=== PATIENT | female | born 1995 | race African-American/Black ===

== ENCOUNTER 2020-01-05 17:19 | Observation (INO) | payer OTHER, SELFPAY ==
[2020-01-05] VITALS (9 sets, daily range): BP systolic 107–125; BP diastolic 56–91; PULSE 66–99; TEMP 37; BMI 43.9
--- NOTE | 2020-01-05 17:19 | OBADM ---
This patient, Josephine Bates, admitted to the OB room OB Post 116 for observation. Patient/family oriented to hospital policies and general routines including ID bracelet, bed and alarms, visiting hours, pain management, procedures, bathroom and other care routines, personal items, smoking policy, room service/diet, and visiting hours. Patient/Family are encouraged to report perceived risks to care and to ask questions if they do not understand what they are told or what they should do.
[2020-01-05 18:41] LABS: Add Urine Microscopic? NO; Appearance Urine Clear (Clear); Bilirubin Urine Negative (Negative); Blood Urine Negative (Negative); Color Urine Yellow (Yellow); Glucose Urine UA Negative (Negative); Ketones Urine Negative (Negative); Leukocyte Esterase Ur Negative LEU/UL (NEGATIVE); Nitrate Urine Negative (Negative); Protein Urine Negative (Negative); Specific Grav Ur 1.013 (1.001-1.035); Urobilinogen Urine Negative mg/dL (<2.0)
--- NOTE | 2020-02-05 07:18 | P.PNOB_ITS ---
OB - Triage/Final Diagnosis Evaluation Laboratory results: Laboratory Tests 01/05/20 18:31 Urine Color Yellow Urine Appearance Clear Urine pH 7.0 Ur Specific [place] 1.013 Urine Protein Negative Urine Glucose (UA) Negative Urine Ketones Negative Ur Blood (Man) Negative Urine Nitrate Negative Urine Bilirubin Negative Urine Urobilinogen Negative Ur Leukocyte Esterase Negative Final Diagnosis (1) Pain in symphysis pubis during : Code(s): O99.89 - Other specified diseases and conditions complicating , childbirth and the puerperium; M79.18 - Myalgia, other site Status: Acute
== END 2020-01-05 20:07 | disposition home or self-care (01) ==
PROVIDERS: Admitting Provider Obstetrics & Gynecology; Visit Provider Obstetrics & Gynecology
DX: O26.899 Other specified pregnancy related conditions, unspecified trimester (principal); R10.2 Pelvic and perineal pain; Z3A.00 Weeks of gestation of pregnancy not specified
CPT/HCPCS: 81003; 87086; G0378; G0379

== ENCOUNTER 2020-01-27 20:41 | Observation (INO) | payer OTHER, SELFPAY ==
[2020-01-27 20:52] VITALS: BP 120/77; PULSE 95; BMI 46.9
--- NOTE | 2020-01-27 20:53 | OBADM ---
This patient, Josephine Bates, admitted to the OB room Labor/Delivery/Recovery 105 for observation. Patient/family oriented to hospital policies and general routines including ID bracelet, bed and alarms, visiting hours, pain management, procedures, bathroom and other care routines, personal items, smoking policy, room service/diet, and visiting hours. Patient/Family are encouraged to report perceived risks to care and to ask questions if they do not understand what they are told or what they should do.
[2020-01-27 21:00] VITALS: TEMP 36.9
[2020-01-27 21:01] VITALS: BP 120/77; PULSE 90
[2020-01-27 21:18] LABS: Add Urine Microscopic? YES; Appearance Urine Cloudy (Clear); Bacteria Urine 2+ /hpf; Bilirubin Urine Negative (Negative); Blood Urine Negative (Negative); Color Urine Yellow (Yellow); Glucose Urine UA Negative (Negative); Ketones Urine Negative (Negative); Leukocyte Esterase Ur Trace LEU/UL (Negative); Mucus Urine Few /lpf; Nitrate Urine Negative (Negative); Protein Urine 1+ mg/dL (Negative); Specific Grav Ur 1.026 (1.001-1.035); Squamous Epithelial Cell Urine Many /hpf (Few); WBC Urine 0-3 /hpf
--- NOTE | 2020-01-27 21:40 | PC.NURSE ---
Updated Dr. Armstrong on maternal and assessments. Notified of UA results. Discharge orders received.
--- NOTE | 2020-01-27 21:58 | PC.NURSE ---
Discharge instructions reviewed with patient. Patient educated on s/s of labor. Patient states understanding of discharge instructions and denies questions. Patient agrees to discharge. Patient left ambulating at 2158.
--- NOTE | 2020-01-28 08:10 | P.PNOB_ITS ---
OB - Triage/Final Diagnosis Evaluation Laboratory results: Laboratory Tests 01/27/20 21:04 Urine Color Yellow Urine Appearance Cloudy H Urine pH 6.0 Ur Specific [place] 1.026 Urine Protein 1+ H Urine Glucose (UA) Negative Urine Ketones Negative Ur Blood (Man) Negative Urine Nitrate Negative Urine Bilirubin Negative Urine Urobilinogen 2.0 H Leukocyte Esterase Rfl Trace H Urine RBC 3-5 H Urine WBC 0-3 Ur Squamous Epith Cells Many H Urine Bacteria 2+ H Urine Mucus Few H Vital signs: Vital Signs - 24 hr 01/27/20 20:52 01/27/20 21:00 01/27/20 21:01 Temperature 36.9 C Pulse Rate 95 90 Blood Pressure 120/77 120/77 Final Diagnosis (1) Back pain affecting : Code(s): O99.89 - Other specified diseases and conditions complicating , childbirth and the puerperium; M54.9 - Dorsalgia, unspecified Status: Acute
== END 2020-01-27 21:58 | disposition home or self-care (01) ==
PROVIDERS: Admitting Provider Obstetrics & Gynecology; PCP Emergency Medicine; Visit Provider Obstetrics & Gynecology
DX: O99.89 Other specified diseases and conditions complicating pregnancy, childbirth and the puerperium (principal); M54.9 Dorsalgia, unspecified; Z3A.00 Weeks of gestation of pregnancy not specified
CPT/HCPCS: 81001; G0378; G0379

== ENCOUNTER 2020-02-03 00:15 | Observation (INO) | payer OTHER, SELFPAY ==
[2020-02-03 01:00] VITALS: BMI 45.6
[2020-02-03 01:30] VITALS: BP 111/71; PULSE 97
[2020-02-03] MEDS: METOCLOPRAMIDE HCL INJ 10 MG/2 ML VIAL IV PUSH (01:57)
[2020-02-03] MEDS: LACTATED RINGERS 1,000 ML 125 ML IV CONT ×2 (01:57→02:52)
[2020-02-03] MEDS: ONDANSETRON INJ 4 MG/2 ML VIAL IV PUSH (01:57)
[2020-02-03 02:02] LABS: Alanine Aminotransferase 15 U/L (4-35); Albumin Level 3.4 g/dL (3.5-5.1); Alkaline Phosphatase 99 U/L (38-126); Aspartate Amino Transferase 20 U/L (14-36); Bilirubin,Total 0.5 mg/dL (0.2-1.3); Blood Urea Nitrogen 5 mg/dL (7-17); Calcium 8.5 mg/dL (8.4-10.2); Carbon Dioxide 19 mmol/L (22-30); Chloride 106 mmol/L (98-107); Estimated CRCL calculation 247 ml/min; Estimated Glomerular Filt Rate > 60; Glucose 86 mg/dL (65-105); Potassium 3.8 mmol/L (3.4-5.0); Sodium 132 mmol/L (137-145)
--- NOTE | 2020-02-17 14:39 | P.DS_ITS ---
DS: Admitting Diagnosis Admitting Diagnosis Admitting Diagnosis: pevic pain DS: Discharge Diagnosis Discharge Diagnosis (1) Pain in symphysis pubis during : Code(s): O99.89 - Other specified diseases and conditions complicating , childbirth and the puerperium; M79.18 - Myalgia, other site Status: Acute (2) Back pain affecting : Code(s): O99.89 - Other specified diseases and conditions complicating , childbirth and the puerperium; M54.9 - Dorsalgia, unspecified Status: Acute OB - DS: Summary OB Procedures : None OB Procedures Intrapartum: Other OB Procedures: : None Time Spent with Patient Time attestation: Total time spent providing and/or coordinating discharge services: Exam Const: General: comfortable Limitations: no limitations Chest: Breast/axilla inspection: normal inspection of the breasts Resp: Effort & Inspection: normal respiratory effort Cardio: Rate: regular rate GI: GI Palp: Yes Soft to palpation : General: Yes bladder normal to inspection Psych: Appearance: grossly normal Mental Status: mental status grossly normal Discharge Plan Discharge Attending physician on discharge: Oren Cagle Discharging Clinician: Oren Cagle Patient Disposition: Home, Self-Care Activity: as tolerated Diet: as tolerated Wound Care Instructions: follow printed instructions Discharge Instructions: OB ANTEPARTUM DISCHARGE INSTRUCTIONS This information is given to help you properly care for yourself at home after your discharge from the hospital. Follow these instructions until your doctor tells you otherwise. DIET: Eat Three Well Balanced Meals per Day Small Frequent Feedings Drink at Least Eight 8-Ounce Glasses of Caffeine-Free Beverages Daily Additional Diet Instructions: ACTIVITY: As Tolerated Additional Activity Instructions: RETURN TO LABOR AND DELIVERY IF YOU HAVE: Any Change In Baby's Normal Movement Pattern Any Leakage of Fluid Contractions 3-5 Minutes Apart with Increasing Intensity Vaginal Bleeding Additional Reasons to Return to Labor and Delivery: Contractions may feel like abdominal pain, tightening, cramping, pressure, back ache, or thigh ache. FOLLOW-UP CARE: Keep Next Scheduled Appointment To see in/on Valuables released to patient or family? N/A Medications from home returned to patient? N/A I Acknowledge Receipt of and Understand the Above Instructions IF YOU HAVE ANY QUESTIONS REGARDING THESE INSTRUCTIONS, PLEASE CALL [phone]. IF PROBLEMS ARISE, CALL YOUR PROVIDER. IF EMERGENCY CARE IS NEEDED, [facility] EMERGENCY ROOM IS AVAILABLE 24 HOURS A DAY. Stand Alone Forms: General Discharge Information Follow-up/Referrals: Oren Cagle MD [Physician] - Discharge Medications: Continued PNV cmb#95-ferrous fumarate-FA [] 28 mg iron- 800 mcg Tablet 1 tablet PO DAILY RF: 0 Date of admission: 02/03/20 00:15 Primary Care Provider: Jules Garcia Admitting Provider: Oren Cagle Interventions: Discharge Disposition Last Done: 02/03/20 04:07 Discharge Date/Time: 02/03/20 04:10 Attending physician on admission: Oren Cagle Condition: Stable
== END 2020-02-03 04:10 | disposition home or self-care (01) ==
PROVIDERS: Admitting Provider Obstetrics & Gynecology; PCP Emergency Medicine; Visit Provider Obstetrics & Gynecology
DX: O99.89 Other specified diseases and conditions complicating pregnancy, childbirth and the puerperium (principal); M79.18 Myalgia, other site; M54.9 Dorsalgia, unspecified; Z3A.00 Weeks of gestation of pregnancy not specified
CPT/HCPCS: 36415; 80053; 96361; 96374; 96375; G0378; G0379; J2405; J2765; J7120

== ENCOUNTER 2020-02-23 00:42 | Inpatient (IN) | payer OTHER, SELFPAY ==
[2020-02-23] VITALS (83 sets, daily range): BP systolic 82–130; BP diastolic 45–94; PULSE 17–125; RESP 15–20; TEMP 36.1–37.2; O2SAT 93–100; BMI 45.6
--- NOTE | 2020-02-23 00:42 | LDADM ---
This patient, Josephine Bates, was admitted to Labor/Delivery/Recovery 109 on 02/23/20 at 00:42. Plans for labor, pain management and were discussed with patient. Patient/family oriented to hospital policies and general routines including ID bracelet, bed and alarms, visiting hours, pain management, procedures, bathroom and other care routines, personal items, smoking policy, room service/diet and guest tray routines, infant security routines, and visiting hours. Patient/Family are encouraged to report perceived risks to care and to ask questions if they do not understand what they are told or what they should do. See OBIX for further documentation.
[2020-02-23 01:17] LABS: Basophils Percent Auto 0.3 % (0.2-1.2); Eosinophils Absolute Auto 0.1 K/mm3 (0-0.3); Eosinophils Percent Auto 0.7 % (0-4.4); Hematocrit 32.2 % (37.0-47.0); Hemoglobin 10.6 g/dL (12.0-15.0); Immature Granulocyte Absolute 0.03 K/mm3 (0.00-0.031); Immature Granulocyte Percent A 0.3 % (0-0.5); Lymphocytes Absolute Auto 2.94 K/mm3 (0.9-3.2); Lymphocytes Percent Auto 27.6 % (18.3-44.2); Mean Corpuscular HGB Conc 32.9 g/dl (32-36); Mean Corpuscular Hemoglobin 26.9 pg (26-34); Mean Corpuscular Volume 81.7 fl (80-100); Mean Platelet Volume 11.4 fl (7.4-10.4); Monocytes Percent Auto 9.1 % (2.6-8.5); Neutrophils Absolute Auto 6.6 K/mm3 (1.3-6.7); Platelet Count Result 299 k/mm3 (150-375); Red Blood Count 3.94 M/mm3 (4.2-5.4); Red Cell Distribution Width 15.5 % (11.5-14.5); White Blood Count 10.7 K/mm3 (4.5-10.0)
[2020-02-23] MEDS: DINOPROSTONE 10 MG VAG INSERT VAGINAL (01:31)
[2020-02-23 02:10] LABS: HIV 1/2 Ab P24 Ag Result Negative (Negative)
[2020-02-23 02:10] LABS: Amphetamine Screen Urine Negative (Negative); Barbiturate Screen Urine Negative (Negative); Benzodiazepines Screen Urine Negative (Negative); Cannabinoid Screen Urine Negative (Negative); Cocaine Screen Urine Negative (Negative); Methadone Screen Urine Negative (Negative); Opiate Screen Urine Negative (Negative); Phencyclidine Screen Urine Negative (Negative)
[2020-02-23 08:16] LABS: Rapid Plasma Reagin Non-Reactive (NonReactive)
--- NOTE | 2020-02-23 09:06 | WPDANESEPP ---
Anes - Eval Pre Procedure Procedure: labor epidural Date/Time: 02/23/20 09:06 Surgeon: Tsering Preop Diagnosis: Pain during labor Pre Op Diagnosis: IOL Patient Data Age: 24 Gender: F Height: 5 ft 7 in Weight: 132 kg Last Vital Signs Temp 36.6 C 02/23/20 08:45 Pulse 80 02/23/20 08:46 BP 107/74 02/23/20 08:46 Allergies Allergy/AdvReac Type Severity Reaction Status Date / Time No Known Allergies Allergy Verified 02/03/20 15:49 Home Medications Medication Instructions Recorded Confirmed Type PNV cmb#95-ferrous fumarate-FA 1 tablet PO DAILY 01/05/20 02/23/20 History [] Laboratory Tests 02/23/20 02/23/20 02/23/20 01:10 01:10 01:10 WBC 10.7 K/mm3 H K/mm3 (4.5-10.0) RBC 3.94 M/mm3 L M/mm3 (4.2-5.4) Hgb 10.6 g/dL L g/dL (12.0-15.0) Hct 32.2 % L % (37.0-47.0) MCV 81.7 fl fl (80-100) MCH 26.9 pg pg (26-34) MCHC 32.9 g/dl g/dl (32-36) RDW 15.5 % H % (11.5-14.5) Plt Count 299 k/mm3 k/mm3 (150-375) MPV 11.4 fl H fl (7.4-10.4) Immature Gran % (Auto) 0.3 % % (0-0.5) Neut % (Auto) 62.0 % % (45.5-73.1) Lymph % (Auto) 27.6 % % (18.3-44.2) [place] % (Auto) 9.1 % H % (2.6-8.5) Eos % (Auto) 0.7 % % (0-4.4) Baso % (Auto) 0.3 % % (0.2-1.2) Lymph # (Auto) 2.94 K/mm3 K/mm3 (0.9-3.2) [place] # (Auto) 1.0 K/mm3 H K/mm3 (0.1-0.6) Eos # (Auto) 0.1 K/mm3 K/mm3 (0-0.3) Baso # (Auto) 0.0 K/mm3 K/mm3 (0.0-0.1) Abs Immat Gran (auto) 0.03 K/mm3 K/mm3 (0.00-0.031) Absolute Neuts (auto) 6.6 K/mm3 K/mm3 (1.3-6.7) Absolute Nucleated RBC 0.0 K/mm3 K/mm3 (0.0-0.012) Nucleated RBC % 0.0 % % (0.0-0.2) Urine Opiates Screen Urine Methadone Screen Ur Barbiturates Screen Ur Phencyclidine Scrn Ur Amphetamine Screen U Benzodiazepines Scrn Urine Cocaine Screen U Cannabinoids Screen RPR Non-reactive (NonReactive) HIV 1&2 Ab/P24 Ag 4thGn Negative (Negative) Blood Type Antibody Screen 02/23/20 02/23/20 01:10 01:40 WBC RBC Hgb Hct MCV MCH MCHC RDW Plt Count MPV Immature Gran % (Auto) Neut % (Auto) Lymph % (Auto) [place] % (Auto) Eos % (Auto) Baso % (Auto) Lymph # (Auto) [place] # (Auto) Eos # (Auto) Baso # (Auto) Abs Immat Gran (auto) Absolute Neuts (auto) Absolute Nucleated RBC Nucleated RBC % Urine Opiates Screen Negative (Negative) Urine Methadone Screen Negative (Negative) Ur Barbiturates Screen Negative (Negative) Ur Phencyclidine Scrn Negative (Negative) Ur Amphetamine Screen Negative (Negative) U Benzodiazepines Scrn Negative (Negative) Urine Cocaine Screen Negative (Negative) U Cannabinoids Screen Negative (Negative) RPR HIV 1&2 Ab/P24 Ag 4thGn Blood Type B Positive Antibody Screen Negative Patient hx anesthesia problems: none Family hx anesthesia problems: none PMFSH Family History Family History Other Unknown family medical history Social History Social History Smoking status: Never smoker Substance use: never Spiritual care concerns: No Exam Day of Procedure 02/23/20 09:06
[2020-02-23] MEDS: AMPICILLIN 2 GM/NS 100 ML 2 GM/100 ML BAG IVPB (10:08)
[2020-02-23] MEDS: LACTATED RINGERS 1,000 ML 125 ML IV CONT (10:09)
[2020-02-23] MEDS: OXYTOCIN 30 UNITS/NS 500 ML 30 UNITS/500 ML BAG 125 UNITS IV CONT ×2 (14:14→20:52)
[2020-02-23] MEDS: AMPICILLIN 1 GM/NS 50 ML 1 GM/50 ML BAG IVPB ×2 (14:14→18:19)
--- NOTE | 2020-02-23 18:04 | WPDANESEPPF ---
Anes - Initial Pre Proc Eval Procedure: Operation Date: 02/23/20 18:30 Proposed Procedures p Section - Oren Cagle MD Date/Time: 02/23/20 18:04 Surgeon: Oren Cagle MD Pre Op Diagnosis: non reassuring heart tones Patient Data Age: 24 Gender: F Height: 1.7 m Weight: 132 kg Last Vital Signs Temp 37.2 C 02/23/20 18:03 Pulse 93 02/23/20 18:01 BP 113/67 02/23/20 18:01 Allergies Allergy/AdvReac Type Severity Reaction Status Date / Time No Known Allergies Allergy Verified 02/03/20 15:49 Home Medications Medication Instructions Recorded Confirmed Type PNV cmb#95-ferrous fumarate-FA 1 tablet PO DAILY 01/05/20 02/23/20 History [] Laboratory Tests 02/23/20 02/23/20 02/23/20 01:10 01:10 01:10 WBC 10.7 K/mm3 H K/mm3 (4.5-10.0) RBC 3.94 M/mm3 L M/mm3 (4.2-5.4) Hgb 10.6 g/dL L g/dL (12.0-15.0) Hct 32.2 % L % (37.0-47.0) MCV 81.7 fl fl (80-100) MCH 26.9 pg pg (26-34) MCHC 32.9 g/dl g/dl (32-36) RDW 15.5 % H % (11.5-14.5) Plt Count 299 k/mm3 k/mm3 (150-375) MPV 11.4 fl H fl (7.4-10.4) Immature Gran % (Auto) 0.3 % % (0-0.5) Neut % (Auto) 62.0 % % (45.5-73.1) Lymph % (Auto) 27.6 % % (18.3-44.2) [place] % (Auto) 9.1 % H % (2.6-8.5) Eos % (Auto) 0.7 % % (0-4.4) Baso % (Auto) 0.3 % % (0.2-1.2) Lymph # (Auto) 2.94 K/mm3 K/mm3 (0.9-3.2) [place] # (Auto) 1.0 K/mm3 H K/mm3 (0.1-0.6) Eos # (Auto) 0.1 K/mm3 K/mm3 (0-0.3) Baso # (Auto) 0.0 K/mm3 K/mm3 (0.0-0.1) Abs Immat Gran (auto) 0.03 K/mm3 K/mm3 (0.00-0.031) Absolute Neuts (auto) 6.6 K/mm3 K/mm3 (1.3-6.7) Absolute Nucleated RBC 0.0 K/mm3 K/mm3 (0.0-0.012) Nucleated RBC % 0.0 % % (0.0-0.2) Urine Opiates Screen Urine Methadone Screen Ur Barbiturates Screen Ur Phencyclidine Scrn Ur Amphetamine Screen U Benzodiazepines Scrn Urine Cocaine Screen U Cannabinoids Screen RPR Non-reactive (NonReactive) HIV 1&2 Ab/P24 Ag 4thGn Negative (Negative) Blood Type Antibody Screen 02/23/20 02/23/20 01:10 01:40 WBC RBC Hgb Hct MCV MCH MCHC RDW Plt Count MPV Immature Gran % (Auto) Neut % (Auto) Lymph % (Auto) [place] % (Auto) Eos % (Auto) Baso % (Auto) Lymph # (Auto) [place] # (Auto) Eos # (Auto) Baso # (Auto) Abs Immat Gran (auto) Absolute Neuts (auto) Absolute Nucleated RBC Nucleated RBC % Urine Opiates Screen Negative (Negative) Urine Methadone Screen Negative (Negative) Ur Barbiturates Screen Negative (Negative) Ur Phencyclidine Scrn Negative (Negative) Ur Amphetamine Screen Negative (Negative) U Benzodiazepines Scrn Negative (Negative) Urine Cocaine Screen Negative (Negative) U Cannabinoids Screen Negative (Negative) RPR HIV 1&2 Ab/P24 Ag 4thGn Blood Type B Positive Antibody Screen Negative Patient hx anesthesia problems: none Family hx anesthesia problems: none PMFSH Family History Family History Other Unknown family medical history Social History Social History Smoking status: Never smoker Substance use: never Spiritual care concerns: No Anes - Eval Final PreProcedure Day of Procedure 02/23/20 18:04 Patient weight: morbidly obese H
--- NOTE | 2020-02-23 18:31 | PM.IMHP ---
H&P: HPI History of Present Illness Date/Time: 02/23/20 18:31 Chief complaint: non reassuring heart tones Narrative: Josephine Bates is a 24 year old female G1 at 40 weeks with IOL with Cervidil who was started on Pitocin began having FHT decels 75 with non reassuring fht now being taken to OR for Primary C section Review of Systems Review of Systems: All systems reviewed & are unremarkable except as noted in HPI and below Constitutional: Constitutional: Reports no additional constitutional complaints Eyes: Eyes: Reports no additional eye complaints ENT: Reports system reviewed and no additional complaints, except as documented Cardiovascular: Cardiovascular: Reports no additional cardiovascular complaints Respiratory: Respiratory: Reports no additional respiratory complaints Gastrointestinal: Gastrointestinal: Reports no additional gastrointestinal complaints Genitourinary: Genitourinary: Reports no additional female genitourinary complaints Musculoskeletal: Musculoskeletal: Reports no additional musculoskeletal complaints Integumentary/Breasts: Skin/Breast: Reports system reviewed and no additional complaints, except as docu Neurologic: Reports system reviewed and no additional complaints, except as documented Psychiatric: Psychiatric: Reports no additional psychiatric complaints [facility] Family History Family History Mother Asthma Diabetes mellitus Sibling Asthma Other Unknown family medical history Social History Social History Smoking status: Never smoker Second hand tobacco smoke exposure: No Alcohol intake: never Substance use: never Substance use type: does not use Living arrangements: with roommate(s) Occupation/Education: occupation 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; 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 Gender identity (if verbalized by the patient): Female Sexual Orientation (if Verbalized by the Patient): Straight or Heterosexual Spiritual care concerns: No Agree to blood products: Yes Meds Home Medications and Allergies Home Medications Medication Instructions Recorded Confirmed Type PNV cmb#95-ferrous fumarate-FA 1 tablet PO DAILY 01/05/20 02/23/20 History [] Allergies Allergy/AdvReac Type Severity Reaction Status Date / Time No Known Allergies Allergy Verified 02/03/20 15:49 Vital Signs Vital Signs - 24 hr 02/23/20 00:58 02/23/20 01:00 02/23/20 01:16 Temperature 98.4 F Pulse Rate 97 89 Blood Pressure 110/64 113/62 02/23/20 01:46 02/23/20 02:01 02/23/20 02:16 Temperature Pulse Rate 84 82 83 Blood Pressure 113/63 99/54 L 110/58 L 02/23/20 02:31 02/23/20 02:46 02/23/20 03:00 Temperature 97.9 F Pulse Rate 86 85 Blood Pressure 103/50 L 99/55 L 02/23/20 03:01 02/23/20 03:16 02/23/20 03:31 Temperature Pulse Rate 86 78 77 Blood Pressure 106/61 98/58 L 99/61 L 02/23/20 07:47 02/23/20 08:01 02/23/20 08:16 Temperature Pulse Rate 83 83 70 Blood Pressure 124/74 100/49 L 118/76 02/23/20 08:31 02/23/20 08:45 02/23/20 08:46 Temperature 97.9 F Pulse Rate 86 80 Blood Pressure 114/73 107/74 02/23/20 09:16 02/23/20 09:31 02/23/20 09:46 Temperature Pulse Rate 90 91 94 Blood Pressure 114/73 122/72 128/72 02/23/20 10:01 02/23/20 14:14 02/23/20 14:16 Temperature Pulse Rate 93 81 97 Blood Pressure 122/80 118/78 108/73 02/23/20 14:31 02/23/20 14:36 02/23/20 14:46 Temperature 97.9 F Pulse Rate 94 97 Blood Pressure 119/60 112/72 02/23/20 15:01 02/23/20 15:16 02/23/20 15:29 Temperature 98.4 F Pulse Rate 90 93 Blood Pressure 112/72 115/71 02/23/20 15:31 02/23/20 15:46 02/23/20 17:08 Temperature Pulse Rate 84 90 93 Blood Pressure 114/68 130/94 H 117/69 02/23/20 17:16 02/23/20 17:31 02/23/20 17:46 Temperature Pulse Rate 87 83
--- NOTE | 2020-02-23 19:29 | WPDHPUPDATE1 ---
History and Physical Update Update Date/Time: 02/23/20 17:29 History and Physical has been reviewed, including an updated exam of the patient. There are changes in the patient's condition. Non reassuring FHT needs primary c section dc pitocin non emergent primary c section under spinal Risks, benefits, and alternatives have been discussed and questions answered. Patient agrees to proceed with procedure.
--- NOTE | 2020-02-23 19:30 | WPDOBADMIT ---
Obstetrics - Admit Note Admission Note: record reviewed. No pertinent additions to the history and/or any subsequent changes in the physical findings that are not consistent with the expected course of the were found. Additions to the history and/or subsequent changes in the physical findings follow. None.
--- NOTE | 2020-02-23 19:31 | PM.OBPRVD ---
OB - Delivery Note Procedure Procedure: Procedures Operation Date: 02/23/20 18:30 Primary Low Transverse C section with delivery of viable female and placenta> events: Labor Induction Intrapartal events: Intolerance and Failure to Progress in Labor Induction method: per misoprostol protocol and per pitocin protocol Delivery monitor: external FHT and external uterine Route of delivery: Specimen: Yes (placenta) Estimated blood loss (mL): 620 Anesthesia type: Spinal Disposition: floor Baby Date of : 02/23/20 Time of : 18:59 Weeks of gestation at delivery: 40 Infant gender: Female Weight (pounds): 6 Weight (ounces): 13 presentation: vertex position: Left Occiput Transverse Placenta delivery description: Manual Removal and Normal Configuration (short cord) cord vessel description: 3 Vessels (short cord) score one minute: 9 score five minutes: 9
--- NOTE | 2020-02-23 19:34 | PM.OBPNLAB ---
Pain Control Date/time seen: 02/23/20 18:34 Pain control: tolerating well Pelvic Exam Dilation (cm): 0 Effacement (%): 0 station: -4 Amniotic membrane status: Intact Contractions Monitor mode: External Contraction pattern: Irregular Contraction intensity: Mild Status status: Category ll Assessment and Plan Assessment: induction ongoing and other ( intolerance of labor with failed progress in labor) Plan:
[2020-02-24] VITALS (7 sets, daily range): BP systolic 107–124; BP diastolic 59–78; PULSE 80–102; RESP 16–18; TEMP 36.7–37.4; O2SAT 97–100
[2020-02-24] MEDS: DEXTROSE 5%/0.45% SOD CHL 1,000 ML 125 ML IV CONT (01:08)
--- NOTE | 2020-02-24 03:02 | PC.NURSE ---
Patient transferred to post room # 291 via stretcher . Support person present. Oriented to unit, room, information board, rooming in, admission packet and security measures. Patient verbalizes understanding. Infant in room with parents via crib.
[2020-02-24 05:32] LABS: Basophils Percent Auto 0.2 % (0.2-1.2); Eosinophils Percent Auto 0.2 % (0-4.4); Hematocrit 29.9 % (37.0-47.0); Hemoglobin 9.4 g/dL (12.0-15.0); Immature Granulocyte Absolute 0.05 K/mm3 (0.00-0.031); Immature Granulocyte Percent A 0.4 % (0-0.5); Lymphocytes Absolute Auto 1.59 K/mm3 (0.9-3.2); Lymphocytes Percent Auto 11.3 % (18.3-44.2); Mean Corpuscular HGB Conc 31.4 g/dl (32-36); Mean Corpuscular Hemoglobin 26.3 pg (26-34); Mean Corpuscular Volume 83.8 fl (80-100); Mean Platelet Volume 11.3 fl (7.4-10.4); Monocytes Absolute Auto 0.9 K/mm3 (0.1-0.6); Monocytes Percent Auto 6.7 % (2.6-8.5); Neutrophils Absolute Auto 11.5 K/mm3 (1.3-6.7); Neutrophils Percent Auto 81.2 % (45.5-73.1); Platelet Count Result 237 k/mm3 (150-375); Red Blood Count 3.57 M/mm3 (4.2-5.4); Red Cell Distribution Width 15.6 % (11.5-14.5); White Blood Count 14.1 K/mm3 (4.5-10.0)
[2020-02-24] MEDS: ONDANSETRON INJ 4 MG/2 ML VIAL IV PUSH (05:32)
--- NOTE | 2020-02-24 07:58 | WPDANLDPN2 ---
Anes-Prog Note L&D Date/Time: 02/24/20 07:58 Comfortable throughout: section Neuraxial method: spinal Epidural/Spinal procedure site: clean & non-tender Neuro status: Neuro function grossly intact. Cardiovascular status: normal Respiratory status: normal Airway patency: baseline Mental status: baseline Post-Op hydration status: normal Vital Signs: Last Vital Signs Temp 36.7 C 02/24/20 06:11 Pulse 80 02/24/20 06:11 Resp 18 02/24/20 06:11 BP 110/65 02/24/20 06:11 Pulse Ox 100 02/24/20 06:11 I/O: Intake & Output 02/23/20 02/23/20 02/24/20 15:59 23:59 07:59 Intake Total 50 1400 862 Output Total 820 1200 Balance 50 580 -338 Post-procedural complaints: none Patient feedback: Patient satisfied with anesthetic care.
--- NOTE | 2020-02-24 07:58 | WPDANLDNPN2 ---
Anes-Prog Note L&D-Neuraxial Date/Time: 02/24/20 07:58 Neuraxial medications: intrathecal PF morphine Opiod-related complaints: none Patient feedback: Patient satisfied with post-operative pain management.
--- NOTE | 2020-02-24 08:38 | P.PNOB_ITS ---
OB - PN: Subj Subjective Date/time seen: 02/24/20 08:38 Interval history: POD#1 s/p Primary LTCS for intolerance of labor viable female infant Patient comments: no complaints and pain well controlled baby status: doing well and nursing well feeding status: breast and bottle feeding OB - PN: Obj Data Labs CBC & Chem 7: 02/24/20 05:20 Labs: Laboratory Results - last 24 hr 02/24/20 05:20 WBC 14.1 H RBC 3.57 L Hgb 9.4 L Hct 29.9 L MCV 83.8 MCH 26.3 MCHC 31.4 L RDW 15.6 H Plt Count 237 MPV 11.3 H Immature Gran % (Auto) 0.4 Neut % (Auto) 81.2 H Lymph % (Auto) 11.3 L [place] % (Auto) 6.7 Eos % (Auto) 0.2 Baso % (Auto) 0.2 Lymph # (Auto) 1.59 [place] # (Auto) 0.9 H Eos # (Auto) 0.0 Baso # (Auto) 0.0 Abs Immat Gran (auto) 0.05 H Absolute Neuts (auto) 11.5 H Absolute Nucleated RBC 0.0 Nucleated RBC % 0.0 OB - PN A/P Assessment and Plan (1) Term delivered: Code(s): O80 - Encounter for full-term uncomplicated delivery Status: Acute (2) intolerance to labor, delivered, current hospitalization: Code(s): O77.9 - Labor and delivery complicated by stress, unspecified Status: Acute (3) Failure to progress in first stage of labor: Status: Acute (4) GBS (group B streptococcus) infection: Code(s): A49.1 - Streptococcal infection, unspecified site Status: Acute (5) Obesity: Code(s): E66.9 - Obesity, unspecified Status: Acute (6) Anemia: Code(s): D64.9 - Anemia, unspecified Status: Acute (7) Delivery by section: Status: Acute Time Spent With Patient Time: Total time spent is greater than 50% in coordination of care (as documented) at patient's floor/unit and/or counseling patient:30 cont post op care Review of Systems Review of Systems: All systems reviewed & are unremarkable except as noted in HPI and below Exam Const: General: comfortable and no acute distress Orie ntation/consciousness: patient oriented x3 Chest: Breast/axilla inspection: normal inspection of the breasts Resp: Effort & Inspection: normal respiratory effort Auscultation: clear to auscultation bilaterally Cardio: Rate: regular rate GI: Inspection: normal to inspection and incision (clean dry intact dressing) Percussion: Yes normal to percussion Auscultation: normal bowel sounds : General: Yes bladder normal to inspection and Yes no CVA tenderness Urinary Catheter: Urinary Catheter: patent and draining Psych: Appearance: grossly normal Mental Status: mental status grossly normal Affect: normal affect Attitude: cooperative Judgement: Good judgement present (Psych)
--- NOTE | 2020-02-24 09:00 | PC.NURSE ---
PT introductions made and plan of care discussed per post op c section, pain management, breast/bottle feeding, daily care activities. PT verbalized understanding of such care.
[2020-02-24] MEDS: KETOROLAC 30 MG/ML VIAL (*BKC) IV PUSH (09:19)
[2020-02-24] MEDS: ACETAMINOPHEN 325 MG TABLET 650 MG PO ×2 (09:20→16:58)
[2020-02-24] MEDS: DOCUSATE SODIUM 100 MG CAPSULE PO ×2 (09:21→16:59)
[2020-02-24] MEDS: POLYSACCHARIDE IRON COMPLEX 150 MG CAPSULE PO ×2 (09:22→16:59)
[2020-02-24] MEDS: SIMETHICONE 80 MG TAB.CHEW PO ×2 (09:23→16:59)
[2020-02-24] MEDS: LANOLIN (LANSINOH) 7.5 GM CREAM 1 APPLIC TOPICAL (09:23)
[2020-02-24] MEDS: MULTIVIT/MIN/PREN/FOL AC/IRON TABLET 1 TAB PO (09:23)
--- NOTE | 2020-02-24 12:20 | PC.NURSE ---
Mother called out for assist with feeding. Consulted with patient, Mother reports she is breast and bottle feeding. . Mother states she has difficulties with latching. Reviewed feeding cues, frequencies, duration of feedings, feeding elimination flow sheet, and signs of adequate intake. Demonstrated stimulation techniques to wake for feeding. Assisted with infant to breast. Reviewed positioning/alignment in cross cradle, holding breast in U hold and guided asymmetrical latch on. Within a few attempts was able to latch correctly. nursed eagerly, with steady draws and frequent swallowing with pausing. Reviewed signs of a correct latch, effective nursing and suck swallow ratio. Infant was able to maintain latch without discomfort to mother. Nipple care reviewed. Suggested to stimulate while feeding to keep awake and nursing effectively for increased intake and to assist with maintaining deep latch. Demonstrated how to adjust latch while feeding. Instructed mother to call out for RN assistance if she is unable to latch infant for feeding or she has discomfort with nursing. Instructed feeding should be initiated three hours from start of last feeding or if feeding cues are noted before. Mother voiced understanding of information shared.
[2020-02-24] MEDS: IBUPROFEN 400 MG TABLET 800 MG PO ×2 (16:58→22:15)
--- NOTE | 2020-02-25 07:00 | PC.NURSE ---
PT introductions made and plan of care discussed per post op c section, pain management, breast feeding, daily care activities. PT verbalized understanding of such care.
[2020-02-25 07:15] VITALS: PULSE 88; RESP 18; O2SAT 98
--- NOTE | 2020-02-25 07:27 | P.PNOB_ITS ---
OB - PN: Subj Subjective Date/time seen: 02/25/20 07:27 Interval history: POD#2 s/p Primary LTCS for intolerance of labor viable female infant Patient comments: no complaints, pain well controlled, tolerating diet and fla tus present [place] baby status: doing well [place] feeding status: exclusively breast feeding OB - PN: Obj Data Labs CBC & Chem 7: 02/24/20 05:20 OB - PN A/P Assessment and Plan (1) Delivery by section: Status: Acute (2) Anemia: Code(s): D64.9 - Anemia, unspecified Status: Acute (3) Failure to progress in first stage of labor: Status: Acute (4) intolerance to labor, delivered, current hospitalization: Code(s): O77.9 - Labor and delivery complicated by stress, unspecified Status: Acute (5) Term delivered: Code(s): O80 - Encounter for full-term uncomplicated delivery Status: Acute Time Spent With Patient Time: Total time spent is greater than 50% in coordination of care (as documented) at patient's floor/unit and/or counseling patient:15 Review of Systems Review of Systems: All systems reviewed & are unremarkable except as noted in HPI and below Exam Const: General: comfortable and no acute distress Orientation/consciousness: patient oriented x3 Chest: Breast/axilla inspection: normal inspection of the breasts Resp: Effort & Inspection: normal respiratory effort Cardio: Rate: regular rate GI: Inspection: normal to inspection and incision (CDI DRESSING NORMAL) GI Palp: Yes Soft to palpation Percussion: Yes normal to percussion Auscultation: normal bowel sounds : General: Yes no CVA tenderness Neuro: General: oriented to person, oriented to place, oriented to time and patient oriented x3 Cranial nerves: Yes CN's II-XII intact bilaterally Cognition (Neuro): normal cognition Speech: normal speech Gait exam (Neuro): Normal gait present Motor exam (neuro): 5/5 motor strength present throughout Sensory Exam: normal sensation Extrem: General: full ROM, no pedal edema and no calf tenderness Psych: Appearance: grossly normal Mental Status: mental status grossly normal Affect: normal affect Attitude: cooperative Judgement: Good judgement present (Psych)
[2020-02-25] MEDS: POLYSACCHARIDE IRON COMPLEX 150 MG CAPSULE PO ×2 (07:28→17:36)
[2020-02-25] MEDS: SIMETHICONE 80 MG TAB.CHEW PO ×3 (07:28→17:36)
[2020-02-25] MEDS: IBUPROFEN 400 MG TABLET 800 MG PO ×3 (07:28→17:36)
[2020-02-25] MEDS: DOCUSATE SODIUM 100 MG CAPSULE PO ×2 (07:28→17:36)
[2020-02-25] MEDS: MULTIVIT/MIN/PREN/FOL AC/IRON TABLET 1 TAB PO (07:28)
[2020-02-25] MEDS: ACETAMINOPHEN 325 MG TABLET 650 MG PO ×3 (07:28→17:35)
--- NOTE | 2020-02-25 07:36 | PM.OBDSVD ---
DS: Admitting Diagnosis Admitting Diagnosis Admitting Diagnosis: Term Induction of labor MTHFR Anemia Obesity Asthma GBS Asthma DS: Discharge Diagnosis Discharge Diagnosis (1) Delivery by section: Status: Acute (2) Anemia: Code(s): D64.9 - Anemia, unspecified Status: Acute (3) Failure to progress in first stage of labor: Status: Acute (4) intolerance to labor, delivered, current hospitalization: Code(s): O77.9 - Labor and delivery complicated by stress, unspecified Status: Acute (5) Term delivered: Code(s): O80 - Encounter for full-term uncomplicated delivery Status: Acute (6) Term : Code(s): Z34.90 - Encounter for supervision of normal , unspecified, unspecified trimester Status: Acute (7) Asthma: Code(s): J45.909 - Unspecified asthma, uncomplicated Status: Acute (8) GERD (gastroesophageal reflux disease): Code(s): K21.9 - Gastro-esophageal reflux disease without esophagitis Status: Acute (9) GBS (group B streptococcus) infection: Code(s): A49.1 - Streptococcal infection, unspecified site Status: Acute (10) PCOS (polycystic ovarian syndrome): Code(s): E28.2 - Polycystic ovarian syndrome Status: Acute (11) Heterozygous MTHFR mutation [id number]: Code(s): E72.12 - Methylenetetrahydrofolate reductase deficiency Status: Acute OB - DS: Summary OB Procedures : Ultrasound OB Procedures Intrapartum: OB Procedures: : Antibiotics Peripartum Data Procedures: Procedures Operation Date: 02/23/20 18:30 Actual Procedures Side Surgeon p Section Not Applicable Oren Cagle MD Time Spent with Patient Time attestation: Total time spent providing and/or coordinating discharge services: 30 min Exam Const: General: cooperative, healthy appearing, comfortable and no acute distress Nutritional Appearance: obese Orientation/consciousness: patient oriented x3 Limitations: no limitations HENMT: Head: normal to inspection Eyes: General: appearance normal, both eyes and all related structures Neck: Neck: normal visual inspection Chest: Chest palpation & inspection: normal inspection of the chest Breast/axilla inspection: normal inspection of the breasts Breast/axilla palpation: normal palpation of the breasts Resp: Effort & Inspection: normal respiratory effort Auscultation: clear to auscultation bilaterally Cardio: Rate: regular rate Rhythm: regular rhythm Peripheral pulses: Peripheral pulses 2+ throughout GI: Inspection: normal to inspection and incision (CDI) GI Palp: Yes Soft to palpation Percussion: Yes normal to percussion Auscultation: normal bowel sounds : General: Yes no CVA tenderness External Female Exam: normal external appearance Neuro: General: patient oriented x3 Cranial nerves: Yes CN's II-XII intact bilaterally Cognition (Neuro): normal cognition Speech: normal speech Gait exam (Neuro): Normal gait present Motor exam (neuro): 5/5 motor strength present throughout Sensory Exam: normal sensation Extrem: General: full ROM and no pedal edema Psych: Appearance: grossly normal Mental Status: mental status grossly normal Speech and movement: Normal speech and movement present Affect: normal affect Attitude: cooperative Thought process: Normal thought process present Thought content: Yes Normal thought content present Insight: Good insight present (Psych) Judgement: Good judgement present (Psych) DS: Data Data Completed and Pending Pending studies at discharge: Pending at discharge 02/23/20 19:00 Surgical [PTH] Routine Discharge Plan Discharge Attending physician on discharge: Oren Cagle Discharging Clinician: Oren Cagle Anticipated Discharge Date/Time: 02/26/20 07:31 Patient Disposition: Home, Self-Care Activity: november shower
[2020-02-25 07:45] VITALS: BP 114/66; PULSE 88; RESP 18; TEMP 37.1; O2SAT 98
--- NOTE | 2020-02-25 12:05 | PC.NURSE ---
Observed mother is able to latch independently using cross cradle. eagerly latches with steady draws and frequent swallowing noted. Reviewed signs of a correct latch, effective nursing and suck swallow ratio. Infant was able to maintain latch without discomfort to mother. Nipple care reviewed. Suggested mother stimulate while feeding to assist with keeping infant awake and nursing effectively for increased intake and to assist with maintaining deep latch. Instructed mother to call out for RN assistance if she is unable to latch for feeding or she has discomfort with nursing. Instructed feeding should be initiated three hours from start of last feeding or if feeding cues are noted before. Mother voiced understanding of information shared.
[2020-02-25 19:05] VITALS: BP 110/69; PULSE 82; RESP 16; TEMP 36.8
--- NOTE | 2020-02-25 19:56 | P.OP_ITS ---
Procedure Note - Detailed Date of procedure: 02/23/20 Pre-op diagnosis: non reassuring heart tones term Post-op diagnosis: same Procedure performed: primary c section Description of procedure: Primary Low Transverse C section with delivery of viable female infant and placenta Anesthesia: epidural Surgeon: Oren Cagle MD Database Programmer Analyst: surgical supervisor Estimated blood loss (mL): 670 IV fluids (mL): 2,000 Urine output (mL): 200 Drains: No Packing: No Pathology: yes (placenta) Complications: None Condition: stable Disposition: floor Findings: viable female normal placenta
[2020-02-26] MEDS: IBUPROFEN 400 MG TABLET 800 MG PO ×3 (06:12→11:30)
[2020-02-26] MEDS: ACETAMINOPHEN 325 MG TABLET 650 MG PO (06:12)
[2020-02-26 08:09] VITALS: BP 118/67; PULSE 77; RESP 16; TEMP 36.8; O2SAT 93
[2020-02-26] MEDS: POLYSACCHARIDE IRON COMPLEX 150 MG CAPSULE PO (08:11)
[2020-02-26] MEDS: DOCUSATE SODIUM 100 MG CAPSULE PO (08:12)
--- NOTE | 2020-02-26 10:10 | PC.NURSE ---
Observed mother is able to independently latch with appropriate positioning/alignment. She denies any nipple discomfort, is feeding as required and waking infant to feed if needed. has had several effective feedings in the past 24 hours, and is currently meeting outcomes for weight, output, jaundice and feeding frequencies. Mother chooses to bottle feed at times. Mother states she feels confident to continue effective at home. Reviewed transition to breast milk, signs of adequate intake, and engorgement/relief. Instructed to call ICP if intake/output less than required. Reviewed regular medications mother is taking. Information provided per Nichole. Reviewed community resources on the [facility] website and in the Mom/Baby guide. Information on outpatient services provided. Mother has no further questions at this time.
--- NOTE | 2020-02-26 10:39 | WPDANLDPN2 ---
Anes-Prog Note L&D Date/Time: 02/26/20 09:39 Comfortable throughout: section Neuraxial method: spinal Epidural/Spinal procedure site: clean & non-tender Neuro status: Neuro function grossly intact. Cardiovascular status: normal Respiratory status: normal Airway patency: baseline Mental status: baseline Post-Op hydration status: normal Vital Signs: Last Vital Signs Temp 36.8 C 02/26/20 08:09 Pulse 77 02/26/20 08:09 Resp 16 02/26/20 08:09 BP 118/67 02/26/20 08:09 Pulse Ox 93 02/26/20 08:09 I/O: Intake & Output 02/25/20 02/26/20 02/26/20 23:59 07:59 15:59 Output Total 200 Balance -200 Post-procedural complaints: none Patient feedback: Patient satisfied with anesthetic care.
--- NOTE | 2020-02-26 10:40 | WPDANLDNPN2 ---
Anes-Prog Note L&D-Neuraxial Date/Time: 02/26/20 09:40 Neuraxial medications: intrathecal PF morphine Opiod-related complaints: none Patient feedback: Patient satisfied with post-operative pain management.
--- NOTE | 2020-02-26 11:00 | PC.NURSE ---
Patient viewed the discharge video Mother & Baby Care, The First Two Weeks . Patient was given the opportunity and encouraged to ask questions. Patient verbalized understanding of information shared and has been given the mother/baby guide for home reference.
[2020-02-26] MEDS: MULTIVIT/MIN/PREN/FOL AC/IRON TABLET 1 TAB PO (11:31)
[2020-02-29 11:35] VITALS: BP 119/79; PULSE 80; RESP 20; O2SAT 100
--- NOTE | 2020-03-08 19:41 | PM.OBDSVD ---
DS: Admitting Diagnosis Admitting Diagnosis Admitting Diagnosis: Diagnosis: Term Induction of labor MTHFR Anemia Obesity Asthma GBS Asthma non reassuring heart tones intolerance of labor DS: Discharge Diagnosis Discharge Diagnosis (1) Delivery by section: Status: Acute (2) Anemia: Code(s): D64.9 - Anemia, unspecified Status: Acute (3) Failure to progress in first stage of labor: Status: Acute (4) intolerance to labor, delivered, current hospitalization: Code(s): O77.9 - Labor and delivery complicated by stress, unspecified Status: Acute (5) Term delivered: Code(s): O80 - Encounter for full-term uncomplicated delivery Status: Acute (6) Asthma: Code(s): J45.909 - Unspecified asthma, uncomplicated Status: Acute (7) GERD (gastroesophageal reflux disease): Code(s): K21.9 - Gastro-esophageal reflux disease without esophagitis Status: Acute (8) GBS (group B streptococcus) infection: Code(s): A49.1 - Streptococcal infection, unspecified site Status: Acute (9) PCOS (polycystic ovarian syndrome): Code(s): E28.2 - Polycystic ovarian syndrome Status: Acute (10) Obesity: Code(s): E66.9 - Obesity, unspecified Status: Acute (11) HPV (human papilloma virus) infection: Code(s): B97.7 - Papillomavirus as the cause of diseases classified elsewhere Status: Acute (12) Heterozygous MTHFR mutation [id number]: Code(s): E72.12 - Methylenetetrahydrofolate reductase deficiency Status: Acute OB - DS: Summary OB Procedures : Ultrasound OB Procedures Intrapartum: OB Procedures: : Antibiotics Peripartum Data Infant Delivery Method: Section Procedures: Procedures Operation Date: 02/23/20 18:30 Actual Procedures Side Surgeon p Section Not Applicable Oren Cagle MD complications: none [place] 1: Gender: Female (del at 1859 6-13 ) Disposition of : home Status at Discharge Functional status at discharge: independent ambulation Overall status at discharge: patient is back to baseline Time Spent with Patient Time attestation: Total time spent providing and/or coordinating discharge services: Time spent: Less than 30 minutes Exam Const: General: comfortable, no acute distress, alert and awake Orientation/consciousness: patient oriented x3 Limitations: no limitations Chest: Breast/axilla inspection: normal inspection of the breasts Resp: Effort & Inspection: normal respiratory effort Auscultation: clear to auscultation bilaterally Cardio: Rate: regular rate GI: Inspection: normal to inspection and incision (dressing dry and intact) GI Palp: Yes Soft to palpation Percussion: Yes normal to percussion Auscultation: normal bowel sounds : General: Yes no CVA tenderness Psych: Appearance: grossly normal Mental Status: mental status grossly normal Affect: normal affect Attitude: cooperative Thought content: Yes Normal thought content present Judgement: Good judgement present (Psych) DS: Data Data Completed and Pending Completed studies during hospitalization: Pending at discharge 02/23/20 19:00 Surgical [PTH] Routine Discharge Plan Discharge Attending physician on discharge: Oren Cagle Discharging Clinician: Oren Cagle Anticipated Discharge Date/Time: 02/26/20 07:31 Patient Disposition: Home, Self-Care Activity: may shower and may drive after 2 weeks Diet: as tolerated and regular Wound Care Instructions: follow printed instructions Discharge Instructions: Education: Mom and Baby Guide Given to: Follow-Up: Call your delivering provider's office for an appointment to be seen in: [facility] follow-up appointment. Appointment Date/Time
== END 2020-02-26 12:37 | disposition home or self-care (01) | DRG 540 ==
LOC: ANHLDR 18:05 → ANHOB2 22:07
PROVIDERS: Admitting Provider Obstetrics & Gynecology; PCP Emergency Medicine; Visit Provider Obstetrics & Gynecology
PROC: 10D00Z1 Extraction of Products of Conception, Low, Open Approach (ICD-10-PCS; CPT 59514; principal; 2020-02-23 18:30)
DX: O62.0 Primary inadequate contractions (principal); O76 Abnormality in fetal heart rate and rhythm complicating labor and delivery; Z37.0 Single live birth; O36.8330 Maternal care for abnormalities of the fetal heart rate or rhythm, third trimester, not applicable or unspecified; O69.3XX0 Labor and delivery complicated by short cord, not applicable or unspecified; E66.01 Morbid (severe) obesity due to excess calories; O99.214 Obesity complicating childbirth; O99.824 Streptococcus B carrier state complicating childbirth; E72.12 Methylenetetrahydrofolate reductase deficiency; Z3A.40 40 weeks gestation of pregnancy
CPT/HCPCS: 36415; 80307; 85025; 86592; 86703; 86850; 86900; 86901; 88307; A9270; G0432; J0290; J1885; J2274; J2405; J2590; J7120

== ENCOUNTER 2023-01-18 08:34 | Outpatient (CLI) | payer OTHER, SELFPAY ==
--- NOTE | ~2023-01-18 | US_ITS ---
Pelvic ultrasound. Clinical History: Supervision of normal , first trimester Technique: Realtime transabdominal and transvaginal scanning of the pelvis was performed. Color flow Doppler and Doppler spectral analysis were performed. Findings: The uterus is anteverted, and contains an intrauterine gestation. [place]-rump length of 6.4 cm corresponds to an estimated gestational age of 12 weeks 6 days. heart rate is [address] nta located posteriorly. Small subchorionic hemorrhage noted, measuring 2.6 x 1.1 x 1.7 cm. The right ovary measures 2.0 x 4.0 x 2.6 cm. No significant right ovarian or adnexal mass is seen. The left ovary is not visualized. No significant left ovarian or adnexal mass is seen. There is no evidence of free fluid in the cul de sac. Impression: Live intrauterine gestation with estimated gestational age of 12 weeks 6 days. heart rate is 15 3 bpm. Small subchorionic hemorrhage, as noted above. Reviewed, dictated and finalized at location . Impression: Live intrauterine gestation with estimated gestational age of 12 weeks 6 days. heart rate is 153 bpm. Small subchorionic hemorrhage, as noted above.
== END 2023-01-18 08:35 | disposition home or self-care (01) ==
PROVIDERS: Visit Provider Physician Assistant
DX: Z34.91 Encounter for supervision of normal pregnancy, unspecified, first trimester (principal); Z3A.12 12 weeks gestation of pregnancy
CPT/HCPCS: 76801

== ENCOUNTER 2023-04-21 14:27 | Observation (INO) | payer OTHER, SELFPAY ==
--- NOTE | ~2023-04-21 | US_ITS ---
EXAMINATION: US OB limited DATE: 04/21/2023 15:56 INDICATION: Placenta Check, SABRA . TECHNIQUE: Real-time ultrasound of the pelvis was performed. COMPARISON: None. FINDINGS: There is a single living fetus in vertex presentation, longitudinal lie. The placenta is posterior, distant from the cervix. The cervix is long and closed. heart rate is 148 bpm. The amniotic flu id index is 12.8 cm, which is normal (5th to 95th percentile is 9.7 to 22.8 cm). IMPRESSION: Single living fetus in vertex presentation. Normal SABRA. Normal-appearing posterior placenta. Reviewed, dictated and finalized at location K.
[2023-04-21 14:40] VITALS: BP 133/77; PULSE 87
[2023-04-21 14:45] VITALS: BP 129/69; PULSE 86
[2023-04-21 14:47] VITALS: BMI 43.8
--- NOTE | 2023-04-21 14:48 | LDADM ---
This patient, Josephine Bates, was admitted to OB Post 116 on 04/21/23 at 14:27. Plans for labor, pain management and were discussed with patient. Patient/family oriented to hospital policies and general routines including ID bracelet, bed and alarms, visiting hours, pain management, procedures, bathroom and other care routines, personal items, smoking policy, room service/diet and guest tray routines, security routines, and visiting hours. Patient/Family are encouraged to report perceived risks to care and to ask questions if they do not understand what they are told or what they should do. See OBIX for further documentation.
[2023-04-21 15:00] VITALS: BP 125/81; PULSE 97
[2023-04-21 15:06] LABS: Basophils Percent Auto 0.4 % (0.2-1.2); Eosinophils Absolute Auto 0.1 K/mm3 (0-0.3); Eosinophils Percent Auto 1.3 % (0-4.4); Hematocrit 32.6 % (37.0-47.0); Hemoglobin 10.2 g/dL (12.0-15.0); Immature Granulocyte Absolute 0.03 K/mm3 (0.00-0.031); Immature Granulocyte Percent A 0.3 % (0-0.5); Lymphocytes Absolute Auto 2.06 K/mm3 (0.9-3.2); Lymphocytes Percent Auto 20.3 % (18.3-44.2); Mean Corpuscular HGB Conc 31.3 g/dl (32-36); Mean Corpuscular Hemoglobin 27.7 pg (26-34); Mean Corpuscular Volume 88.6 fl (80-100); Mean Platelet Volume 10.8 fl (7.4-10.4); Monocytes Absolute Auto 0.9 K/mm3 (0.1-0.6); Monocytes Percent Auto 8.8 % (2.6-8.5); Neutrophils Percent Auto 68.9 % (45.5-73.1); Platelet Count Result 247 k/mm3 (150-375); Red Blood Count 3.68 M/mm3 (4.2-5.4); Red Cell Distribution Width 14.6 % (11.5-14.5); White Blood Count 10.1 K/mm3 (4.5-10.0)
[2023-04-21 15:15] VITALS: BP 124/78; PULSE 82
--- NOTE | 2023-04-21 15:53 | PC.NURSE ---
Patient admitted to L&D unit for observation with complaints of vaginal bleeding. Patient is a walk in as her delivering hospital is in [place]. She states she has no complications with this . Patient states she has had pink tinged blood when she wipes for the past 3 days. Today she went to the restroom and had a long thin blood clot which caused her to come in to be seen. MD on unit. Verbal orders given for monitoring, type & screen, CBC, and an ultrasound for placenta check and SABRA. Patient agrees with plan of care and has no questions at this time.
--- NOTE | 2023-04-21 16:14 | PC.NURSE ---
Called Dr. Webber at 1613 with ultrasound and lab results as well as reported tracing. Patient went to restroom and instructed not to flush and leave toilet paper so RN can assess. No active bleeding present at this time. Reported findings to MD as well. Verbal orders given for discharge with instructions to follow up with her OBGYN this week. Patient verbalizes understanding and agrees with plan of care. Patient has no questions at this time.
--- NOTE | 2023-04-22 09:03 | P.PNOB_ITS ---
OB - Triage/Final Diagnosis Visit Information Comments/Additional reasons for admission: I have assessed the risk for this patient, Josephine Bates, and determined that she would benefit from observation care. Evaluation Laboratory results: Laboratory Tests 04/21/23 14:56 WBC 10.1 H RBC 3.68 L Hgb 10.2 L Hct 32.6 L MCV 88.6 MCH 27.7 MCHC 31.3 L RDW 14.6 H Plt Count 247 MPV 10.8 H Immature Gran % (Auto) 0.3 Neut % (Auto) 68.9 Lymph % (Auto) 20.3 [place] % (Auto) 8.8 H Eos % (Auto) 1.3 Baso % (Auto) 0.4 Lymph # (Auto) 2.06 [place] # (Auto) 0.9 H Eos # (Auto) 0.1 Baso # (Auto) 0.0 Abs Immat Gran (auto) 0.03 Absolute Neuts (auto) 7.0 H Absolute Nucleated RBC 0.0 Nucleated RBC % 0.0 Blood Type B Positive Antibody Screen Negative Vital signs: Vital Signs - 24 hr 04/21/23 14:47 04/21/23 14:40 04/21/23 14:45 Pulse Rate 87 86 Blood Pressure 133/77 129/69 Oxygen Delivery Room Air 04/21/23 15:00 04/21/23 15:15 Pulse Rate 97 82 Blood Pressure 125/81 124/78 Oxygen Delivery Final Diagnosis (1) Vaginal spotting: Code(s): N93.9 - Abnormal uterine and vaginal bleeding, unspecified Status: Acute
== END 2023-04-21 16:37 | disposition home or self-care (01) ==
PROVIDERS: Admitting Provider Obstetrics & Gynecology; Visit Provider Obstetrics & Gynecology
DX: O26.852 Spotting complicating pregnancy, second trimester (principal); Z3A.26 26 weeks gestation of pregnancy
CPT/HCPCS: 36415; 76815; 85025; 86850; 86900; 86901; G0378; G0379

== ENCOUNTER 2023-05-29 19:20 | Observation (INO) | payer OTHER, SELFPAY ==
[2023-05-29 19:44] VITALS: BP 124/63; PULSE 93
[2023-05-29 20:01] VITALS: BP 121/77; PULSE 90
[2023-05-29 20:16] VITALS: BP 115/67; PULSE 84
[2023-05-29 20:31] VITALS: BP 113/72; PULSE 81
[2023-05-29 20:46] VITALS: BP 115/72; PULSE 84
[2023-05-29 21:00] VITALS: BMI 48.3
[2023-05-29] MEDS: ACETAMINOPHEN 500 MG TABLET 1000 MG PO (22:00)
--- NOTE | 2023-05-30 09:25 | PM.OBTRLD ---
OB - Triage/Final Diagnosis Visit Information Date of evaluation: 05/29/23 Reason for evaluation: decreased movement Comments/Additional reasons for admission: I have assessed the risk for this patient, Josephine Bates, and determined that she would benefit from observation care. Evaluation Vital signs: Vital Signs - 24 hr 05/29/23 19:44 05/29/23 20:01 05/29/23 20:16 Pulse Rate 93 90 84 Blood Pressure 124/63 121/77 115/67 05/29/23 20:31 05/29/23 20:46 Pulse Rate 81 84 Blood Pressure 113/72 115/72
== END 2023-05-29 22:05 | disposition home or self-care (01) ==
PROVIDERS: Admitting Provider Student in an Organized Health Care Education/Training Program; Visit Provider Student in an Organized Health Care Education/Training Program
DX: O36.8190 Decreased fetal movements, unspecified trimester, not applicable or unspecified (principal); Z3A.00 Weeks of gestation of pregnancy not specified
CPT/HCPCS: A9270; G0378; G0379

== ENCOUNTER 2023-07-18 11:22 | Observation (INO) | payer OTHER, SELFPAY ==
[2023-07-18 11:44] VITALS: BP 126/75; PULSE 97
[2023-07-18 12:00] VITALS: BP 118/78; PULSE 90; RESP 16; TEMP 36.8
[2023-07-18 12:04] LABS: Appearance Urine Turbid (Clear); Bacteria Urine 4+ /hpf; Bilirubin Urine Negative (Negative); Blood Urine Negative (Negative); Color Urine Yellow (Yellow); Glucose Urine UA Negative (Negative); Ketones Urine Trace mg/dL (Negative); Leukocyte Esterase Ur 1+ LEU/UL (Negative); Need Manual Microscopic Reviewed; Nitrate Urine Negative (Negative); Non Pathogenic Casts 0-2; Protein Urine Trace mg/dL (Negative); RBC Urine 0-2 /hpf (0-2); Specific Grav Ur 1.029 (1.001-1.035); Squamous Epithelial Cell Urine Many /hpf (Few); WBC Urine 21-50 /hpf; pH Urine 6.5 (5.0-9.0)
[2023-07-18 12:05] VITALS: BMI 45.4
[2023-07-18 12:06] LABS: Add Urine Microscopic? YES
--- NOTE | 2023-07-18 12:09 | OBADM ---
This patient, Josephine Bates, admitted to the OB room 113 for observation. Patient/family oriented to hospital policies and general routines including ID bracelet, bed and alarms, visiting hours, pain management, procedures, bathroom and other care routines, personal items, smoking policy, room service/diet, and visiting hours. Patient/Family are encouraged to report perceived risks to care and to ask questions if they do not understand what they are told or what they should do.
[2023-07-18 12:15] VITALS: BP 115/74; PULSE 88
--- NOTE | 2023-07-18 12:25 | PC.NURSE ---
Dr. Carroll informed of this pt's arrival with hx of nausea, vomiting, and diarrhea that started 07/15/23. Pt has not had an emesis since yesterday morning and was able to eat [place] toast and drink this morning. Pt reports 3 liquid stools since Midnight. FHT's reactive and regular uterine irritability noted. Order received to check cervix and if not in labor to discharge to home. Pt may berry picker Imodium over the counter to take for the diarrhea.
--- NOTE | 2023-07-24 09:38 | PM.OBTRLD ---
OB - Triage/Final Diagnosis Visit Information Comments/Additional reasons for admission: I have assessed the risk for this patient, Josephine Bates, and determined that she would benefit from observation care. Evaluation Laboratory results: Laboratory Tests 07/18/23 11:44 Urine Color Yellow Urine Appearance Turbid H Urine pH 6.5 Ur Specific [place] 1.029 Urine Protein Trace Urine Glucose (UA) Negative Urine Ketones Trace H Ur Blood (Man) Negative Urine Nitrate Negative Urine Bilirubin Negative Urine Urobilinogen 1.0 Add Ur Microanalysis Reviewed Leukocyte Esterase Rfl 1+ H Urine RBC 0-2 Urine WBC 21-50 H Ur Squamous Epith Cells Many H Urine Bacteria 4+ H Urine Casts 0-2 Final Diagnosis (1) Diarrhea during : Code(s): O26.899 - Other specified related conditions, unspecified trimester; R19.7 - Diarrhea, unspecified Status: Acute
== END 2023-07-18 13:17 | disposition home or self-care (01) ==
PROVIDERS: Admitting Provider Obstetrics & Gynecology; Visit Provider Obstetrics & Gynecology
DX: O26.893 Other specified pregnancy related conditions, third trimester (principal); R19.7 Diarrhea, unspecified; O21.2 Late vomiting of pregnancy
CPT/HCPCS: 81001; 87086; 87088; G0378; G0379